=== PATIENT | male | born 1950 | race Caucasian/White ===

== ENCOUNTER 2024-08-04 10:08 | Day surgery (SDC) | payer MEDICARE, OTHER, SELFPAY ==
[2024-07-19 09:43] VITALS: BMI 33.3
[2024-08-04] VITALS (18 sets, daily range): BP systolic 93–130; BP diastolic 58–95
[2024-08-04] MEDS: NSS 500 IV (10:53)
[2024-08-04 13:20] LABS: ACT-LR - POC 242 Seconds (116-155)
--- NOTE | 2024-08-04 13:49 | ITS.CL.ABL ---
[employer] - Ablation
Ablation
Procedure Report:
ELECTROPHYSIOLOGY ABLATION STUDY
DATE:: August 04, 2024�����������������������������REFERRING: Dr. Giu Obrien
INDICATION: Longstanding persistent supraventricular tachycardia in the form of atrial fibrillation.��Prior pulmonary vein isolation as part of the Irase AF trial in 2009 with irrigated RF
HISTORY: See H and P.��As above
ANTIARRHYTHMIC DRUG: Metoprolol only
PRE-PROCEDURE FELA: No intracardiac thrombus
PRESENTING RHYTHM: A-fib
'TIME-OUT':��called and confirmed.
SEDATION/ANESTHESIA:��provided via the anesthesia department using general anesthesia (LMA).
INTRAVENOUS/ARTERIAL ACCESS:
Right femoral venous - 8Fr
Left femoral venous - 8 Fr, 6 Fr
Ultrasound guidance for bilateral femoral vein access was utilized by me to obtain access with demonstration of normal anatomy
CHADS-VASC Score:
HAS-Bled Score
PROCEDURE:
1.��A decapolar CS catheter was placed within the CS for mapping and pacing.��This was also used as the reference catheter for the 3-D map.
2. The intracardiac ultrasound catheter was positioned in the RA to identify the FO for targeting of transseptal puncture, assist��in identification of the pulmonary vein ostia, monitoring pre and post ablation pulmonary vein flow velocities,
monitoring for 'bubble' formation during RF application as a sign of thermal injury,��and to monitor for pericardial effusion during mapping and ablation procedure.���Left atrial size, LV ejection fraction, and pulmonary vein flows were monitored
pre and post ablation procedure. The other valves were inspected and found to be free of significant regurgitation or stenosis.
3.��Half of the calculated heparin bolus was administered prior to the first transeptal puncture.��Transseptal puncture was performed to diagnose RA and LA pressure so that safety of LA mapping and ablation could be further assessed, and to access
the left atrium and pulmonary veins for mapping and ablation.��This entailed advancing an 16 Nepali RF wire�sheath with dilator into the superior vena cava and withdrawing both (monitoring intracardiac ultrasound, fluoroscopy and tip pressure) with
the tip oriented toward the atrial septum.��The fossa ovalis was engaged (indicated by sudden displacement of the sheath tip as well as tenting of the fossa seen on intracardiac ultrasound).��Left atrial access required a pass with the [place]
needle extended.��Left atrial catheter position was confirmed by pressure monitoring (RA mean pressure 908 mm Hg and LA mean presure 14 mm Hg), LA saturation ( 99%),��as well as fluoroscopy.��The sheath was advanced over the dilator and positioned
in the left atrium.��This procedure was repeated for the Agilis sheath.��The remainder of the calculated heparin bolus was administered and heparin was
infused to maintain ACT at 300 -350 seconds throughout the case.
4.��RA pacing was performed via the proximal decapolar poles and LA pacing was performed via the distal decapolr poles.
5. A quadrapolar catheter was first positioned at the His position for His Bundle recording which was tagged via the 3-D Navex sytem, and then passed to the RVA for RV pacing and recording.
6. The multipolar catheter and the PFA catheter placed in each of the LIPV, LSPV, RSPV and the RIPV. 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 Focal connection at
the right superior pulmonary vein radha was noted.
7.��Next, a 3-D map was created using Navex.���A 3-D reconstructed CT image was compared to the 3-D Navex map to assist in anatomic interpretation, mapping and ablation.��The CT image and the NavX image were fused.
8. A total of 40 lesions were given with basket anchoring lesions to the left veins, flower deliveries to the roof posterior wall and floor of the left atrium, and all of and basket poses to the right. Ready for pulmonary veins. This rendered the
veins isolated with entrance block in all 4 pulmonary veins as well as left atrial posterior wall roof and floor. We then converted the patient to junctional rhythm with 300 J biphasic shock. Ephedrine and atrial pacing was given with resumption
of a junctional rhythm at 1100 ms which was hemodynamically tolerated with periodic sinus beats suggesting recovery of sinus node function slowly over time. The patient did not require any pressor support during lightening of anesthesia and was
hemodynamically stable.
9. The patient has evidence for sick sinus syndrome but this remained would be related to his longstanding persistent atrial fibrillation and has intact AV conduction
TOTAL FLOURO TIME: 11.6 minutes 110 mg
TOTAL RF DURATION: 0 minutes
REVERSAL OF HEPARIN: 40 mg of protamine, slow IV administration
COMPLICATIONS:
None
Intracardiac US shows no pericardial effusion post ablation.
SUMMARY:��
Complex left atrial mapping and ablation.
Reisolation of the right superior pulmonary vein, and the left atrial posterior wall, roof and left atrial floor.
RECOMMENDATIONS:
1. Consider same-day discharge but will follow closely on telemetry post procedure to monitor for sinus node function throughout the day
2. Resume anticoagulation
3.� Will discontinue metoprolol at discharge
4.��May consider resuming metoprolol as an outpatient if his sinus node rates improve
Copy to: Dr. Maikel Obrien
--- NOTE | 2024-08-04 16:25 | W.PN.UPDATE ---
Update Note
Progress Note Update
Pt seen post PFA. Bilat groin sites without ht/bleeding, non tender. Intraop rhythm was bradycardic with junctional rhythm but has since improved to NSR 60s. EKG without acute changes. Will discontinue metoprolol at this time. Resume xarelto this
evening at usual time. Followup at [facility] as scheduled and with Dr. Obrien thereafter. Home today if groin sites/tele remain stable.
== END 2024-08-04 18:26 | disposition home or self-care (01) ==
LOC: CATH 10:08
PROVIDERS: ATTENDING PHYSICIAN Internal Medicine Cardiovascular Disease; FAMILY PHYSICIAN Family Medicine
DX: I48.19 Other persistent atrial fibrillation (principal); I47.19 Other supraventricular tachycardia; I48.3 Typical atrial flutter; I10 Essential (primary) hypertension; E78.00 Pure hypercholesterolemia, unspecified; I34.0 Nonrheumatic mitral (valve) insufficiency; Z86.718 Personal history of other venous thrombosis and embolism; K21.9 Gastro-esophageal reflux disease without esophagitis; Z87.19 Personal history of other diseases of the digestive system; Z86.0100 Personal history of colon polyps, unspecified; R42 Dizziness and giddiness; Z79.899 Other long term (current) drug therapy; Z79.52 Long term (current) use of systemic steroids; Z85.46 Personal history of malignant neoplasm of prostate; C79.9 Secondary malignant neoplasm of unspecified site; Z85.820 Personal history of malignant melanoma of skin; Z92.3 Personal history of irradiation; E66.9 Obesity, unspecified; Z68.33 Body mass index [BMI] 33.0-33.9, adult; Z87.891 Personal history of nicotine dependence; Z79.01 Long term (current) use of anticoagulants; Z88.5 Allergy status to narcotic agent; Z90.49 Acquired absence of other specified parts of digestive tract; Z96.611 Presence of right artificial shoulder joint
CPT/HCPCS: C1732; C1894; C1730; C1759; 85347; 93005; 93567; 93656; 93657; C1733; C1766

== ENCOUNTER 2024-08-24 09:50 | Day surgery (SDC) | payer MEDICARE, OTHER, SELFPAY ==
--- NOTE | 2024-08-24 12:56 | ITS.CL.CARDI ---
Animal Doctor - Cardioversion
Cardioversion
Procedure Report:
Date of Procedure: Aug 24 2024
Procedure: Cardioversion
Indication: Symptomatic atrial fibrillation
Performing Physician: Romel Clay DO, FACC
Technique: The patient was brought to the holding area. Signed informed consent was obtained. A time out was called and performed. The patient was anesthetized by the anesthesia service. Anticoagulation status was reviewed and appropriate. R2 pads
were placed anteriorly and posteriorly. A 250 J synchronized biphasic shock restored normal sinus rhythm. There were no complications.
Conclusion: Uncomplicated cardioversion from atrial fibrillation to sinus rhythm.
Recommendation: Routine post cardioversion care. 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 Stop Metoprolol.
== END 2024-08-24 13:26 | disposition home or self-care (01) ==
LOC: CATH 09:50
PROVIDERS: ATTENDING PHYSICIAN Nuclear Medicine Nuclear Cardiology; FAMILY PHYSICIAN Family Medicine; OTHER PHYSICIAN Internal Medicine Cardiovascular Disease
DX: I48.91 Unspecified atrial fibrillation (principal); I10 Essential (primary) hypertension; K21.00 Gastro-esophageal reflux disease with esophagitis, without bleeding; K22.70 Barrett's esophagus without dysplasia; Z79.01 Long term (current) use of anticoagulants; Z79.899 Other long term (current) drug therapy
CPT/HCPCS: 92960; 93005

== ENCOUNTER 2024-12-12 09:39 | Emergency (ER) | payer MEDICARE, OTHER, SELFPAY ==
[2024-12-12 09:43] VITALS: BP 124/79
[2024-12-12 09:57] LABS: % Basophils 0.4 % (0-2); % Eosinophils 2.1 % (0-6); % Immature Granulocytes 2.5 % (0-0.5); % Lymphocytes 17.3 % (20.5-51.1); % Monocytes 11.1 % (1.7-9.3); % Neutrophils 66.6 % (42.2-75.2); Absolute Eosinophils 0.1 10^3/uL (0-0.7); Absolute Immature Granulocytes 0.1 10^3/uL (0-0.05); Absolute Lymphocytes 0.9 10^3/uL (1.2-3.4); Absolute Monocytes 0.6 10^3/uL (0.1-0.6); Absolute Neutrophils 3.5 10^3/uL (1.4-6.5); Hematocrit 38.8 % (39.0-52.0); Hemoglobin 13.7 g/dL (13.0-18.0); Mean Corp Hgb Conc. 35.3 g/dL (33.0-37.0); Mean Corpuscular Hgb 30.6 pg (27.0-31.0); Mean Corpuscular Volume 86.6 fL (80.0-94.0); Mean Platelet Volume 9.5 fL (7.4-10.4); Nucleated Red Blood Cells % 0 % (-); Platelet Count 251 10^3/uL (130-400); Red Blood Cell Count 4.48 10^6/uL (4.70-6.10); Red Cell Dist. Width 15.2 % (11.5-14.5); White Blood Cell Count 5.2 10^3/uL (4.8-10.8)
[2024-12-12 10:20] LABS: ALT (SGPT) 16 U/L (0-50); AST (SGOT) 24 U/L (17-59); Albumin 4.1 g/dl (3.5-5.0); Alkaline Phosphatase 92 U/L (38-126); Blood Urea Nitrogen 22 mg/dl (9-20); Calcium 9.4 mg/dl (8.4-10.2); Carbon Dioxide 21 mmol/L (22-30); Chloride 114 mmol/L (98-107); Glucose 123 mg/dl (70-99); Potassium 3.7 mmol/L (3.5-5.1); Sodium 142 mmol/L (135-145); Total Bilirubin 0.7 mg/dl (0.2-1.3); Total Protein 7.3 g/dl (6.3-8.2); eGFR > 60.00
[2024-12-12 10:25] LABS: Troponin I < 0.012 ng/ml
[2024-12-12 11:00] VITALS: BP 119/74
[2024-12-12 11:15] VITALS: BMI 32.3
--- NOTE | 2024-12-12 11:24 | ED.GENMED ---
History of Present Illness
General
Chief Complaint: Dizziness
Source: patient
Exam Limitations: none
Time Seen by Provider: 12/12/24 10:54
History of Present Illness
History of Present Illness:
74yoM with a history of atrial fibrillation, hypertension, hyperlipidemia, prostate cancer s/p radiation, melanoma s/p resection/radiation/chemo presenting for evaluation after an episode of dizziness. Patient was standing and sitting at [employer]
this morning. He suddenly started to feel short of breath, lightheaded, and became diaphoretic. Episode occurred around 9:30 AM. Symptoms lasted for about 5 to 6 minutes before improving. There was no loss of consciousness. He denies any chest
pain during the episode. Dizziness has resolved but he continues to feel mildly dyspneic. Of note, patient had a fall about a week ago. He is experiencing some mild residual rib pain and would like this checked while he is here.
Past History
Past History
ED Past Medical History: Arrthythmia (afib on Xarelto), Cancer (melanoma, prostate) and Other (dvt)
ED Past Surgical History: Cardiac and Other (see H/p)
Social History
Tobacco: Non-smoker
Alcohol: None
Drug: None
Personal:
Living: with family
Employment: Employed
Family History
Family History: Hypertension
Phy Exam
General Physical Exam
General Presentation: well appearing and no apparent distress
General Skin: warm and dry
General Habitus: normal
General Mental: alert
ENT Exam
ENT Exam: normocephalic
Cardiovascular Exam
Cardiovascular Exam: no edema, normal peripheral pulses and irregularly irregular
Pulmonary Exam
Pulmonary Exam: no respiratory distress, chest non tender, no rhonchi, no stridor, no wheezing and other (Rales noted to R lung base which patient states is chronic for him 2/2 prior radiation)
Gastrointestinal Exam
Gastrointestinal Exam: non tender, soft and non distended
Neurological Exam
Neurological Exam: alert
Lorin Coma Scale
Eye Opening: Spontaneous
Verbal Response: Oriented
Motor Response: Obeys Commands
GCS Total Score: 15
Skin Exam
Skin Exam: normal color and warm/dry
Psychiatric Exam
Psychiatric Exam: normal mood/affect
Course
Orders/Labs/Results
Orders:
Orders
12/12/24 09:41
EKG [Electrocardiogram (*1)] Urgent
Reason for Study: Vertigo / Dizzy
EKG- Treatment ONCE
12/12/24 09:51
Complete Blood Count/With Diff Urgent
Comprehensive Metabolic Panel Urgent
Magnesium Urgent
TSH Urgent
Comment: ADD ON
Troponin I Urgent
12/12/24 11:23
Cardiac Monitoring- Treatment ONCE
EKG- Treatment ONCE
Ribs, Soren 4 View W/PA Chest [CR Ribs-soren 4 Vw W/pa Chest] Urgent
Comment:
Reason For Exam: rib pain, SOB
12/12/24 12:45
Electrocardiogram (*1) Urgent
Reason for Study: Shortness of Breath
12/12/24 12:46
Add On- LAB Urgent
Tests Added?: TSH, magnesium
12/12/24 13:06
Troponin I Urgent
12/12/24 13:14
D-Dimer Urgent
Abnormal Lab Results
12/12/24
09:51
RBC 4.48 L 10^6/uL
(4.70-6.10)
Hct 38.8 L %
(39.0-52.0)
RDW 15.2 H %
(11.5-14.5)
Abs Immat Gran (auto) 0.1 H 10^3/uL
(0-0.05)
Absolute Lymphs (auto) 0.9 L 10^3/uL
(1.2-3.4)
Immature Gran % 2.5 H %
(0-0.5)
Lymphocytes % 17.3 L %
(20.5-51.1)
Monocytes % 11.1 H %
(1.7-9.3)
Chloride 114 H mmol/L
(98-107)
Carbon Dioxide 21 L mmol/L
(22-30)
BUN 22 H mg/dl
(9-20)
Glucose 123 H mg/dl
(70-99)
12/12/24 09:51
12/12/24 09:51
Vital Signs
Initial and Last Documented VS:
Initial Vital Signs
Temp Pulse Resp BP Pulse Ox
97.6 F 88 18 124/79 97
12/12/24 09:43 12/12/24 09:43 12/12/24 09:43 12/12/24 09:43 12/12/24 09:43
Last Documented Vital Signs
Temp Pulse Resp BP Pulse Ox
97.6 F 72 17 117/72 100
12/12/24 09:43 12/12/24 14:15 12/12/24 14:15 12/12/24 14:00 12/12/24 14:30
MDM/Problems Addressed
Differential Diagnosis Includes:
74yoM here after an episode of SOB/dizziness/diaphoresis. Occurred while standing and singing at [employer]. Now resolved but continues to have mild SOB. VSS. He is well appearing in no distress. Afib noted on the monitor which patient states is chronic
for him. Exam reassuring. Differential diagnosis includes but is not limited to: orthostatic hypotension, vasovagal episode, arrhythmia, less likely ACS
Initial ED plan: Workup initiated in triage. EKG shows rate controlled afib without ischemic changes and troponin WNL. Will check delta troponin/EKG and CXR.
*Pulse Oximetry
Patient hypoxic: no (100%)
*EKG
Interpreted by ED Provider?: Yes
EKG Intrepretation Date: 12/12/24
Heart Rate: 71
Rate: normal
Rhythm: a-fib
[place]: normal axis
Interval: normal interval
QRS Pattern: normal QRS
Ischemia: no ischemia
*Critical Care Note
Total Time (30-74mins, 75-104mins- exclusive of procedures): Not Applicable
Update Note
Update Note:
Repeat troponin and EKG unchanged. Daughter is a vet and expressed concern for PE. Very low clinical suspicion of this as patient is already anticoagulated and oxygen saturation 98-100%. D-dimer added for completeness which is normal. CXR shows no
acute findings. 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 Telemetry reviewed and patient is having intermittent pauses up to 2 seconds at a time. No associated bradycardia or hypotension. Patient has no symptoms in regard to
this. This was discussed with workers compensation claims examiner soil fertility extension specialist, Dr. Cho. Plan is to hold metoprolol and f/u with the cardiology office as an outpatient. Patient comfortable going home and remains asymptomatic on multiple reassessments. He was able to
ambulate independently to the bathroom without any recurrent dizziness. ED return precautions reviewed and patient discharged in stable condition.
ED Attending Note
-
Portions of this chart may have been created with voice recognition software.� Occasional wrong word or��sound alike� substitutions may have occurred due to the inherent limitations of voice recognition software.
Discharge Plan
Departure
Patient Disposition: Home (Routine Discharge)
Date of Disposition: 12/12/24
Time of Disposition: 14:39
Patient with high blood pressure during this ER visit?: No
Discharge Problem:
Episode of dizziness
Instructions: Dizziness
Prescriptions:
No Action
cholecalciferol (vitamin D3) [Vitamin D3] 1,000 UNIT capsule
1,000 unit PO DAILY
abiraterone [Zytiga] 250 MG tablet
1,000 mg PO HS
prednisone 5 MG tablet
5 mg PO DAILY
Probiotic 1 EACH capsule
1 ea PO DAILY
Lupron Depot (3 month) 22.5 MG syringe kit
22.5 mg IM .[id number]
multivitamin [Daily-Slick] 1 EACH tablet
1 ea PO DAILY
amlodipine 10 MG tablet
10 mg PO DAILY
Xarelto 20 mg Tablet
20 mg PO DAILY
Referrals:
El Stark DO [Family Provider, Family Practice]
Maikel Obrien MD [Active, Cardiology]
Activity Restrictions/Additional Instructions:
Hold your metoprolol.
Please follow-up with your workers compensation claims examiner in the next 1-2 days. Return to the ER with any new or worsening symptoms.
Interventions
Interventions:
*Risk Screen - Suicide Last Done: 12/12/24 11:10
*General Assessment Last Done: 12/12/24 11:10
*Neglect/Abuse Screening Last Done: 12/12/24 11:10
*ED- Fall Risk Assessment Last Done: 12/12/24 11:10
*ED COVID-19 Vaccine History Last Done: 12/12/24 11:10
*Nursing Disposition Last Done: 12/12/24 15:15
ED- Neurological Assessment Last Done: 12/12/24 11:19
ED- Cardiac Assessment Last Done: 12/12/24 11:19
ED Swallowing Screen Last Done: 12/12/24 12:13
Discharge Date and Time
Discharge Date/Time: 12/12/24 15:15
Print Language: [id number]
[2024-12-12 13:00] VITALS: BP 103/70
[2024-12-12 13:43] LABS: D-Dimer < 0.27 ug/mlFEU (0.00-0.50)
[2024-12-12 13:54] LABS: Troponin I < 0.012 ng/ml
[2024-12-12 14:00] VITALS: BP 117/72
[2024-12-12 14:06] LABS: TSH 3.81 uIU/ml (0.47-4.68)
== END 2024-12-12 15:15 | disposition home or self-care (01) ==
LOC: EMR 09:39
PROVIDERS: Emergency Medicine; Physician Assistant; EMERGENCY PHYSICIAN Emergency Medicine; FAMILY PHYSICIAN Family Medicine
DX: R42 Dizziness and giddiness (principal); R06.02 Shortness of breath; R61 Generalized hyperhidrosis; R07.81 Pleurodynia; W19.XXXA Unspecified fall, initial encounter; I48.91 Unspecified atrial fibrillation; I10 Essential (primary) hypertension; E78.5 Hyperlipidemia, unspecified; Z85.46 Personal history of malignant neoplasm of prostate; Z85.820 Personal history of malignant melanoma of skin; Z86.718 Personal history of other venous thrombosis and embolism; Z92.3 Personal history of irradiation; Z92.21 Personal history of antineoplastic chemotherapy; Z79.01 Long term (current) use of anticoagulants; Z88.6 Allergy status to analgesic agent; Z88.5 Allergy status to narcotic agent
CPT/HCPCS: 99284; 71111; 80053; 83735; 84443; 84484; 85025; 85379; 93005

== ENCOUNTER → 2025-01-14 08:58 | Outpatient (REF) | payer MEDICARE, OTHER, SELFPAY | LOC: HWRCS 08:58 | PROVIDERS: ATTENDING PHYSICIAN Nurse Practitioner; FAMILY PHYSICIAN Family Medicine | DX: I48.91 Unspecified atrial fibrillation (principal); I10 Essential (primary) hypertension; R06.09 Other forms of dyspnea | CPT/HCPCS: 93306 ==

== ENCOUNTER → 2025-02-02 08:05 | Outpatient (REF) | payer MEDICARE, OTHER, SELFPAY | LOC: RCS 08:05 | PROVIDERS: ATTENDING PHYSICIAN Nurse Practitioner; FAMILY PHYSICIAN Family Medicine | DX: I48.91 Unspecified atrial fibrillation (principal); I10 Essential (primary) hypertension; R06.09 Other forms of dyspnea | CPT/HCPCS: 78452; 93017; A9500; J2785 ==

== ENCOUNTER 2025-03-22 06:20 | Day surgery (SDC) | payer MEDICARE, OTHER, SELFPAY | END 2025-03-22 09:17 | disposition home or self-care (01) | LOC: GI 06:20 | PROVIDERS: ATTENDING PHYSICIAN Specialist | DX: Z12.11 Encounter for screening for malignant neoplasm of colon (principal); D12.3 Benign neoplasm of transverse colon; K63.5 Polyp of colon; K63.89 Other specified diseases of intestine; Z86.0101 Personal history of adenomatous and serrated colon polyps | CPT/HCPCS: 45380; 88305 ==